=== PATIENT | female | born 1990 | race Caucasian/White ===

== ENCOUNTER 2016-12-18 17:15 | Outpatient (CLI) | payer OTHER ==
[2015-01-27 07:43] VITALS: BP 109/49
== END 2016-12-18 17:30 ==
LOC: LABRHC 17:15
PROVIDERS: ATTEND Physician Assistant
DX: N93.9 Abnormal uterine and vaginal bleeding, unspecified (principal); N89.8 Other specified noninflammatory disorders of vagina
CPT/HCPCS: 87481; 87491; 87591; 87661; 87798; 88148; G0143

== ENCOUNTER 2017-11-17 09:41 | Outpatient (CLI) | payer OTHER ==
[2015-01-27 07:43] VITALS: BP 109/49
[2017-11-17 10:50] LABS: eGFR (Non-African) > 60
[2017-11-17 16:49] LABS: BASO % 0.4 % (0.0-1.5); EOS % 2.2 % (0.0-6.8); LYMPH ABS # 1.43 thou/uL (0.60-4.00); MCH. 26.8 pg (28.0-34.0); MCV 85.7 fL (80.0-100.0); MONOCYTE % 6.9 % (0.0-11.0); MONOCYTE ABS # 0.33 thou/uL (0.00-0.90); PLATELET COUNT 315 thou/uL (130-400)
== END 2017-11-17 09:42 ==
LOC: RT 09:41
PROVIDERS: ATTEND Physician Assistant
DX: R07.9 Chest pain, unspecified (principal); F41.0 Panic disorder [episodic paroxysmal anxiety]; K21.9 Gastro-esophageal reflux disease without esophagitis
CPT/HCPCS: 36415; 80053; 84439; 84443; 84481; 85025; 86677